=== PATIENT | male | born 1970 | race Caucasian/White ===

== ENCOUNTER → 2021-07-06 | Emergency (ER) | payer BC ==
[~2021-07-06] MED LIST: BENICAR20 MG; TOPROL XL25 MG
== END | disposition left against medical advice (07) ==
LOC: ER 09:21
DX: Z53.21 Procedure and treatment not carried out due to patient leaving prior to being seen by health care provider (principal)

== ENCOUNTER 2022-01-07 00:17 | Emergency (ER) | payer BC ==
[~2022-01-07] VITALS: Ht 180.3 cm; Wt 106.6 kg
[2022-01-07] MEDS ORDERED: LIPITOR40 M1 (00:30)
[2022-01-07] MEDS ORDERED: HYZAAR 100-251 EACH (00:31)
[2022-01-07] MEDS ORDERED: LEVSIN/SL0.125 MG SL (04:44)
== END 2022-01-07 04:53 | disposition home or self-care (01) ==
LOC: ER 00:17
DX: R10.84 Generalized abdominal pain (principal); I10 Essential (primary) hypertension